=== PATIENT | male | born 2000 | race Hispanic/Latino ===

== ENCOUNTER 2018-05-30 10:59 | Observation (INO) | payer SELFPAY ==
[~2018-05-30] VITALS: Ht 175.3 cm; Wt 73.8 kg
[2018-05-30] VITALS (9 sets, daily range): BP systolic 94–130; BP diastolic 35–70
--- NOTE | 2018-05-30 11:07 | NUR ---
TO TX ROOM GUARDING ABDOMEN
[2018-05-30 11:26] LABS: HEMATOCRIT 43.3 % (39.0-50.0); IMMATURE GRANULOCYTES 0.5 % (0.0-1.0); MEAN CORPUSCULAR HGB 31.2 pG CALC (26.0-32.0); MEAN CORPUSCULAR HGB CONC 35.3 g/L CALC (32.0-36.0); NEUT# 12.86 thou/uL (1.82-7.42); RED BLOOD COUNT 4.91 mill/uL (4.70-6.10); RED CELL DISTRI WIDTH 11.7 % (11.5-15.5)
[2018-05-30 11:30] LABS: HEMOGLOBIN 15.3 g/dl (14.0-18.0); MEAN CELL VOLUME 88.2 fL CALC (80.0-100.0)
[2018-05-30 11:37] LABS: ALBUMIN 4.8 g/dL (3.2-5.0); ALKALINE PHOSPHATASE 91 u/l (38-126); ANION GAP 18 (6-22 (CALC)); BILIRUBIN, TOTAL 1.2 mg/dL (0.0-1.4); BUN 7 mg/dL (8-21); BUN/CREATININE RATIO 8 (12-20 (CALC)); CARBON DIOXIDE 23 mmol/l (22-30); CHLORIDE 103 mmol/l (95-108); CREATININE 0.9 mg/dL (0.7-1.3); GFR > 60 ML/MIN (>=60 (CALC)); GFR FOR AFR.AMER. > 60 ML/MIN (>=60 (CALC)); LIPASE 18 u/l (23-300); POTASSIUM 4.2 mmol/l (3.5-5.1); SGOT/AST 14 u/l (17-59); SGPT/ALT 22 u/l (21-72); SODIUM 139 mmol/l (137-146); TOTAL PROTEIN 8.2 g/dL (6.3-8.2)
--- NOTE | 2018-05-30 12:19 | NUR ---
PT TO CT AND BACK, REPORTS A DECREASE IN PAIN AFTER MED ADMINISTRATION. PT UPDATED ON KNOWN RESULTS.
--- NOTE | 2018-05-30 13:04 | NUR ---
LOLY received a call from Jacqueline in the E.D requesting on behalf of advice on admission status for the patient with Appendicitis. LOLY asked if the patient will have a Lap Appy and Jacqueline stated " I believe so". CM advised Observation.
--- NOTE | 2018-05-30 13:31 | NUR ---
PT AWARE OF PENDING ADMISSION R/T APPENDICITIS.
--- NOTE | 2018-05-30 13:58 | NUR ---
REPORT CALLED TO ELLIOT KENYON PT TAKEN TO FLOOR WITHOUT INCIDENT.
--- NOTE | 2018-05-30 14:45 | NUR ---
PT ARRIVED FROM ER VIA WC AT 1351 ACCOMPANIED BY STAFF, IV SITE IS FREE FROM REDNESS OR EDEMA. HR IS REG, PULSES ARE STRONG X4, ABD IS SOFT WITH ACTIVE BS.NO DISTRESS NOTED. AT THIS TIME. KNOWS HE WILL HAVE SURGERY, CONTINUE TO OSBERVE AND MONITOR.
--- NOTE | 2018-05-30 18:11 | NUR ---
OR CREW IS HERE TO TRANSPORT PT TO OR. VIA STRETCHER ACCOMPANIED BY STAFF,
--- NOTE | 2018-05-30 18:13 | NUR ---
INFORMED PAPERBACK MACHINE OPERATOR ABOUT ABT FOR THE OR. IT WILL BE TAKEN TO THE OR.
--- NOTE | 2018-05-30 20:30 | NUR ---
PT ARRIVED TO UNIT FRON OR VIA STRETCHER WITH 2 OR STAFF; SLIGHTLY DROWSY AND ORIENTED X 3. TEMPERATURE 101.5 UPON ARRIVAL AND SLIGHTLY HYPOTENSIVE. OXYGEN VIA NC IN PLACE AT 2L; 100% SATURATION. PT DENIES PAIN CURRENTLY. RESPIRATIONS EVEN AND UNLABORED. 3 DRESSINGS TO LOWER ABDOMEN WITH ZORAIDA AND TEGADERM CDI. SCD'S IN PLACE TO BLE. LR INFUSING WITHOUT DIFFICULTY; IV SITE APPEARS HEALTHY. IS PLACED AT BEDSIDE AND EDUCATED ON TCDB. PT REQUESTS WATER; EDUCATED ON DIET AT TOLERATED. BROTHER AT BEDSIDE. SAFETY MEASURES IN PLACE. CALL LIGHT WITHIN REACH.
--- NOTE | 2018-05-31 00:30 | NUR ---
PT RESTING IN BED SEMI FOWLERS WITH NO SIGNS OF DISRESS. CONTINUES TO DENY PAIN. SCHEDULED TORADOL ADMINISTERED AND ZOSYN INFUSING AT THIS TIME WITHOUT DIFFICULTY; NO ADVERSE REACTIONS NOTES. RESPIRATIONS EVEN AND UNLABORED ON ROOM AIR. BROTHER REMAINS AT BEDSIDE. PT HAS NO REQUESTS OR CONCERNS AT THIS TIME. SAFETY MEASURES IN PLACE. CALL LIGHT WITHIN REACH.
--- NOTE | 2018-05-31 04:16 | NUR ---
PT ASLEEP AT THIS TIME; AWAKENS SPONTANEOUSLY. RESPOIRATIONS EVEN AND UNLABORED ON ROOM AIR. NO ACUTE CHANGES IN CONDITION THROUGHOUT THE NIGHT. ONE OF THREE DRESSINGS HAS SMALL NAVAJO OF SANGINOUS DRIANAGE <25%. PT CONTINUES TO DENY PAIN. TOLERATING SOFT FOOD. SAFETY MEASURES IN PLACE. CALL LIGHT WITHIN REACH.
[2018-05-31 04:45] VITALS: BP 121/70
[2018-05-31 07:33] VITALS: BP 85/47
--- NOTE | 2018-05-31 07:33 | NUR ---
PT RESTING IN BED WITH EYES CLOSED, EASILY AROUSED TO VERBAL STIMULI. VITALS OBTAINED, PT BP LOW, NO SIGNS OF DISTRESS NOTED, RESP EVEN AND UNLABORED. PT VOICES NO COMPLAINTS AT THIS TIME. DISCUSSED POC , ENCOURAGED USE OF URINAL. IS INSTRUCTIONS GIVEN, TOTAL VOLUME 2000ML AT THIS TIME. EDUCATED ON SCD'S. ABD DRESSINGS X3 TO ABD, ASSESSMENT COMPLETED AT THIS TIME. CALL LIGHT IN REACH,CONTINUE TO MONITOR.
[2018-05-31 08:46] LABS: IMMATURE GRANULOCYTES 0.4 % (0.0-1.0); MEAN CELL VOLUME 90.2 fL CALC (80.0-100.0); MEAN CORPUSCULAR HGB 31.7 pG CALC (26.0-32.0); MEAN CORPUSCULAR HGB CONC 35.1 g/L CALC (32.0-36.0); NEUT# 9.14 thou/uL (1.82-7.42); RED BLOOD COUNT 3.79 mill/uL (4.70-6.10); RED CELL DISTRI WIDTH 11.9 % (11.5-15.5)
[2018-05-31 08:50] LABS: HEMATOCRIT 34.2 % (39.0-50.0)
[2018-05-31 12:24] LABS: URINE BILIRUBIN - DIPSTICK NEGATIVE (NEGATIVE); URINE BLOOD DIPSTICK NEGATIVE (NEGATIVE); URINE CLARITY CLEAR; URINE GLUCOSE - DIPSTICK NEGATIVE (NEGATIVE); URINE KETONE 40 mg/dL (NEGATIVE); URINE LEUK ESTERASE NEGATIVE (Negative); URINE NITRITE - DIPSTICK NEGATIVE (Negative); URINE PROTEIN - DIPSTICK NEGATIVE (NEG-TRACE)
[2018-05-31 12:25] LABS: URINE COLOR DK. YELLOW
[2018-05-31 13:40] VITALS: BP 123/70
[2018-05-31 16:50] VITALS: BP 131/77
--- NOTE | 2018-05-31 17:35 | NUR ---
PT RESTING IN BED, SHIVERING. LOW GRADE TEMP MEDICATED WITH PAIN MED AND SCHEDULED TORADOL. TEMPERATURE LOWERED IN ROOM. EDUCATED PT ON FEVERS AND SYPMTOMS OF FEVERS, VERBALIZED UNDERSTANDING. CALL LIGHT IN REACH, CONTINUE TO MONITOR.
[2018-05-31 19:40] VITALS: BP 136/83
--- NOTE | 2018-05-31 20:00 | NUR ---
PATIENT UP AMBULATING IN THE ESCOTO-STEADY ON HIS FEET-TOLERATED WELL. PATIENT IS ALERT AND ORIENTEDX3. IV SITE TO LEFT AC INTACT WITH IVF NS PATENT AND INFUSING 125CC/HR. SITE APPEARS HEALTHY. USING IS INSTRUCTED Q1H WHILE AWAKE. ABD DRESSING INTACT WITH SCANT DRAINAGE TO UMBILICAL SITE. ABD IS SOFT WITH ACTIVE BS. TEMP 101-MEDICATED WITH IBUPROFEN 600MG PO GIVEN FOR TEMP. SCD IN USE. TAKING PO FLUIDS AND TOLERATING WELL. CALL LIGHT IN REACH. WILL CONT TO MONITOR.
--- NOTE | 2018-06-01 | NUR ---
RESTING IN BED-IV ZOSYN HUNG ORDERED. CALL LIGHT IN REACH. WILL CONT TO MONITOR
[2018-06-01 00:09] VITALS: BP 124/68
[2018-06-01 04:05] VITALS: BP 127/79
--- NOTE | 2018-06-01 04:56 | NUR ---
RESTING IN BED-APPEARS SLEEPING AT THIS TIME WITH EYES CLOSED. AFEBRILE AT THIS TIME. IVF PATENT AND INFUSING AT 125CC/HR VIA LEFT AC SITE. SITE REMAINS HEALTHY AT THIS TIME. CALL LIGHT IN REACH. WILL CONT TO MONITOR.
[2018-06-01 07:50] VITALS: BP 132/80
--- NOTE | 2018-06-01 07:50 | NUR ---
PT RESTING IN BED, DISCUSSED POC, AMBULATION AND IS. PT VERBALIZED UNDERSTANDING. ASSESSMENT COMPLETED. X3 INCISIONS DRESSING CDI. VOICES NO NEEDS OR COMPLAINST AT THIS TIME.
[2018-06-01 09:00] LABS: HEMATOCRIT 36.2 % (39.0-50.0); HEMOGLOBIN 12.7 g/dl (14.0-18.0); MEAN CELL VOLUME 90.5 fL CALC (80.0-100.0); MEAN CORPUSCULAR HGB 31.8 pG CALC (26.0-32.0); MEAN CORPUSCULAR HGB CONC 35.1 g/L CALC (32.0-36.0); RED CELL DISTRI WIDTH 11.9 % (11.5-15.5)
[2018-06-01 09:19] LABS: ANION GAP 10 (6-22 (CALC)); BUN 3 mg/dL (8-21); BUN/CREATININE RATIO 4 (12-20 (CALC)); CARBON DIOXIDE 24 mmol/l (22-30); CHLORIDE 110 mmol/l (95-108); CREATININE 0.7 mg/dL (0.7-1.3); GFR > 60 ML/MIN (>=60 (CALC)); GFR FOR AFR.AMER. > 60 ML/MIN (>=60 (CALC)); POTASSIUM 3.7 mmol/l (3.5-5.1); SODIUM 140 mmol/l (137-146)
--- NOTE | 2018-06-01 12:00 | NUR ---
PT ATE LUNCH, VISITORS AT BEDSIDE, VOICES NO NEEDS OR COMPLAINTS AT THIS TIME. CALL LIGHT IN REACH,CONTINUE TO MONITOR.
[2018-06-01 12:10] VITALS: BP 139/90
[2018-06-01] MEDS ORDERED: AUGMENTIN875TAB PO (13:42)
[2018-06-01] MEDS ORDERED: OXYCODONE/ACETA1 TA8 PO (13:43)
--- NOTE | 2018-06-01 15:43 | NUR ---
Discharge instructions given. Patient verbalizes understanding of same. Discharged in stable condition via Ambulatory to Home with family. All belongings sent with pt.
== END 2018-06-01 15:43 | disposition home or self-care (01) | DRG 340 ==
LOC: ED 10:59 → ED-I 12:58 → ED 13:12 → MS2 13:13
PROVIDERS: Family Medicine; Nurse Practitioner; ADMIT Internal Medicine; ATTEND Internal Medicine
PROC: 0DTJ4ZZ Resection of Appendix, Percutaneous Endoscopic Approach (ICD-10-PCS; principal; 2018-05-30)
DX: K35.3 Acute appendicitis with localized peritonitis (principal); R50.82 Postprocedural fever
CPT/HCPCS: G0378; J2270; J2710; Q9967

== ENCOUNTER 2022-01-29 12:39 | Emergency (ER) | payer SELFPAY ==
[~2022-01-29] VITALS: Ht 175.3 cm; Wt 82.0 kg
[~2022-01-29 12:39] MED LIST: AUGMENTIN875TAB PO; OXYCODONE/ACETA1 TA8 PO
[2022-01-29 12:55] VITALS: BP 126/83
[2022-01-29 13:00] VITALS: BP 116/71
[2022-01-29 13:16] LABS: IMMATURE GRANULOCYTES 0.2 % (0.0-5.0); MEAN CELL VOLUME 89.9 fL CALC (80.0-100.0); MEAN CORPUSCULAR HGB 31.4 pG CALC (26.0-32.0); MEAN CORPUSCULAR HGB CONC 34.9 g/dL CAL (32.0-36.0); NEUT# 8.84 thou/uL (1.82-7.42); RED BLOOD COUNT 5.23 mill/uL (4.70-6.10); RED CELL DISTRI WIDTH 12.2 % (11.5-15.5)
[2022-01-29 13:27] LABS: HEMOGLOBIN 16.4 g/dl (14.0-18.0)
[2022-01-29 13:30] VITALS: BP 113/72
[2022-01-29 13:35] LABS: ALBUMIN 4.9 g/dL (3.2-5.0); ALKALINE PHOSPHATASE 99 u/l (38-126); AMYLASE 75 u/l (30-110); ANION GAP 18 (6-22 (CALC)); BUN 9 mg/dL (9-20); BUN/CREATININE RATIO 12 (12-20 (CALC)); CARBON DIOXIDE 21 mmol/l (22-30); CHLORIDE 105 mmol/l (95-108); CREATININE 0.8 mg/dL (0.7-1.3); ETHYL ALCOHOL 0 mg/dl (0-30); GFR > 60 ML/MIN (>=60 (CALC)); GFR FOR AFR.AMER. > 60 ML/MIN (>=60 (CALC)); LIPASE 27 u/l (23-300); POTASSIUM 4.4 mmol/l (3.5-5.1); SGOT/AST 57 u/l (17-59); SODIUM 139 mmol/l (137-146); TOTAL PROTEIN 8.3 g/dL (6.3-8.2)
[2022-01-29] MEDS ORDERED: HYDROCO/APAP1 TA9 PO (15:16)
[2022-01-29] MEDS ORDERED: KEFLEX500 MG PO (15:16)
[2022-01-29 17:28] VITALS: BP 113/72
== END 2022-01-29 17:30 | disposition home or self-care (01) | DRG 605 ==
LOC: ED 12:39
PROC: 2W3KX1Z Immobilization of Left Finger using Splint (ICD-10-PCS; principal; 2022-01-29)
DX: S61.215A Laceration without foreign body of left ring finger without damage to nail, initial encounter (principal); R93.6 Abnormal findings on diagnostic imaging of limbs; S00.411A Abrasion of right ear, initial encounter; S00.212A Abrasion of left eyelid and periocular area, initial encounter; S30.810A Abrasion of lower back and pelvis, initial encounter; S70.312A Abrasion, left thigh, initial encounter; F17.200 Nicotine dependence, unspecified, uncomplicated; V03.90XA Pedestrian on foot injured in collision with car, pick-up truck or van, unspecified whether traffic or nontraffic accident, initial encounter; Y92.410 Unspecified street and highway as the place of occurrence of the external cause
CPT/HCPCS: Q9967

== ENCOUNTER 2023-06-01 04:37 | Emergency (ER) | payer BC ==
[~2023-06-01] VITALS: Ht 175.3 cm; Wt 86.3 kg
[~2023-06-01 04:37] MED LIST changes: +HYDROCO/APAP1 TA9 PO; +KEFLEX500 MG PO
[2023-06-01 04:56] VITALS: BP 134/87
[2023-06-01 05:01] VITALS: BP 133/98
[2023-06-01 05:25] LABS: BASO% 0.3 % (0-3); EOS% 3.8 % (0-8); HEMATOCRIT 44.1 % (39.0-50.0); HEMOGLOBIN 15.1 g/dl (14.0-18.0); IMMATURE GRANULOCYTES 0.1 % (0.0-5.0); LYMPH% 31.2 % (15-41); MEAN CELL VOLUME 90.7 fL CALC (80.0-100.0); MEAN CORPUSCULAR HGB 31.1 pG CALC (26.0-32.0); MEAN CORPUSCULAR HGB CONC 34.2 g/dL CAL (32.0-36.0); MONO% 8.7 % (2-13); NEUT# 3.86 thou/uL (1.82-7.42); NEUT% 55.9 % (42-76); RED BLOOD COUNT 4.86 mill/uL (4.70-6.10); RED CELL DISTRI WIDTH 11.9 % (11.5-15.5)
[2023-06-01 05:45] LABS: ALBUMIN 4.8 g/dL (3.2-5.0); ALKALINE PHOSPHATASE 72 u/l (38-126); ANION GAP 12 (6-22 (CALC)); BUN 12 mg/dL (9-20); BUN/CREATININE RATIO 14 (12-20 (CALC)); CHLORIDE 105 mmol/l (95-108); CREATININE 0.9 mg/dL (0.7-1.3); GFR FOR AFR.AMER. > 60 ML/MIN (>=60 (CALC)); GFR OTHER RACES > 60 ML/MIN (>=60 (CALC)); POTASSIUM 4.3 mmol/l (3.5-5.1); SGOT/AST 31 u/l (17-59); SODIUM 139 mmol/l (137-146)
[2023-06-01 05:47] LABS: CARBON DIOXIDE 26 mmol/l (22-30)
[2023-06-01] MEDS ORDERED: KEFLEX500 MG PO (05:55)
[2023-06-01] MEDS ORDERED: LOTRISONE EX (05:55)
[2023-06-01 06:45] VITALS: BP 134/87
== END 2023-06-01 06:45 | disposition home or self-care (01) | DRG 603 ==
LOC: ED 04:37
PROVIDERS: Emergency Medicine
DX: L03.115 Cellulitis of right lower limb (principal); F17.200 Nicotine dependence, unspecified, uncomplicated